=== PATIENT | male | born 1970 | race Caucasian/White ===

== ENCOUNTER 2020-01-23 12:49 | Emergency (ER) | payer MEDICARE, OTHER ==
[2020-01-23] MEDS ORDERED: SODIUM CHLORIDE 1,000 ML IV STA (12:57)
--- NOTE | 2020-01-23 12:57 | PDOC ---
Rapid Medical Evaluation Time Seen by Provider: 01/23/20 12:52 Medical Evaluation: Allergies Allergy/AdvReac Type Severity Reaction Status Date / Time iodine Allergy Verified 12/30/13 06:42 No Known Drug Allergies Allergy Verified 02/02/14 08:54 seafood Allergy Uncoded 12/30/13 06:42 01/23/20 12:52 I performed a brief in-person evaluation of this patient. Pt is a 49 y/o male who presents to the ED with complaint of right sided back pain that radiates down his legs for the last 4 days. He walks with a cane at baseline. He denies any dysuria or hematuria. He was seen by his primary doctor and had an MRI done. He denies fevers or chills. He took an oxycodone this morning (on for prior chronic pain). Pertinent physical exam findings: Right flank tenderness to palpation, walking with a cane (baseline), speaking in full sentences. I have ordered the following: labs, UA, urine culture, will defer imaging orders to treating provider Patient to proceed to ED for further evaluation. Discharge Disposition - Diagnosis Right flank pain - Referrals - Patient Instructions - Post Discharge Activity
[2020-01-23 13:05] VITALS: TEMP 98.6; BMI 33.2
[2020-01-23] MEDS ORDERED: morphine CARPU-JECT 4 MG/1 ML DISP.SYRIN IVPUSH ONE ×2 (13:43→16:07)
[2020-01-23 13:49] LABS: BASO % 0.6 % (0-2.0); EOS % 2.8 % (0-4.5); HEMATOCRIT 44.1 % (35.4-49); HEMOGLOBIN 14.8 GM/dL (11.7-16.9); MCH 30.5 pg (25.7-33.7); MCHC 33.5 g/dl (32.0-35.9); MEAN PLT VOLUME 10.2 fl (7.5-11.1); MONO % 7.2 % (3.8-10.2); NEUT % 65.4 % (42.8-82.8); PLATELET COUNT 157 K/MM3 (134-434); RBC 4.85 M/mm3 (4.00-5.60); RDW 13.2 % (11.9-15.9); WHITE BLOOD COUNT 6.8 K/mm3 (4.0-10.0)
--- NOTE | 2020-01-23 13:51 | PDOC ---
History of Present Illness - General Chief Complaint: Back Pain Stated Complaint: BACK PAIN Time Seen by Provider: 01/23/20 12:52 History Source: Patient Exam Limitations: No Limitations - History of Present Illness Initial Comments: 01/23/20 13:46 49-year-old male history of hypertension, asthma, anxiety, obstructive sleep apnea, renal stones requiring surgical intervention complaining of 2 weeks of low back pain and right-sided lateral chest wall pain worsening over the past week with intermittent nausea. low back pain radiates to left lower extremity. Patient had an MRI of cervical, thoracic and lumbar spine 3 days ago as per physician he has bulging disks and arthritis throughout his entire spine. Plans to follow-up with pain management, has an appointment scheduled with Dr. Jose J Franco on February 11, 2020. Denies cough, shortness of breath, fever, chills, w eakness, trauma, urinary complaints, urine or bowel incontinence, sick contacts or recent travel. Patient took Percocet 10/325 1 tablet at 7 AM today without relief. Patient ambulates with cane given he has had bilateral total knee replacements. ROS: as above PE: GENERAL: Appears uncomfortable HEAD: NCAT EYES: Pupils equal, round and reactive to light, sclera anicteric, conjunctiva clear ENT: pharynx: no erythema, no exudate, uvula midline NECK: supple CHEST: nontender RESP: clear, no w/r/r, no crepitus CARDIO: rrr, no m/g/r ABD: +BS, soft, nontender, non distended BACK: Bilateral CVA tenderness EXTREMITIES: Normal range of motion, no edema NEUROLOGICAL: Normal speech, walking slowly due to low back pain SKIN: Warm, Dry Past History - Medical History Allergies/Adverse Reactions: Allergies Allergy/AdvReac Type Severity Reaction Status Date / Time No Known Drug Allergies Allergy Verified 02/02/14 08:54 seafood Allergy Uncoded 12/30/13 06:42 Home Medications: Ambulatory Orders Citalopram Hydrobromide [Celexa -] 10 mg PO DAILY 12/01/12 Lisinopril [Prinivil] 10 mg PO DAILY 12/01/12 Hydrocodone Bit/Acetaminophen [Vicodin Es 7.5-750] 1 - 2 tab PO PRN PRN #0 tablet 12/02/12 Amlodipine Besylate [Norvasc -] 5 mg PO DAILY 12/29/13 Docusate Sodium [Colace -] 100 mg PO TID PRN 12/29/13 Finasteride [Proscar] 5 mg PO DAILY 12/29/13 Omeprazole [Prilosec] 40 mg PO DAILY 12/29/13 Oxycodone HCl/Acetaminophen [Percocet 5-325 mg Tablet -] 1 tab PO Q4H PRN #20 tablet 12/30/13 Celecoxib [Celebrex -] 200 mg PO BID 01/23/20 Duloxetine HCl [Cymbalta -] mg PO DAILY 01/23/20 COPD: No Diabetes: Yes Dialysis: Yes GI Disorders: Yes (acid reflux) Disorders: Yes HTN: Yes Hypercholesterolemia: Yes Kidney Stones: Yes Other medical history: arthritis - Surgical History Cholecystectomy: Yes Orthopedic Surgery: Yes (LEFT FOOT) - Immunization History Immunization Up to Date: Yes - Psycho-Social/Smoking History Smoking Status: No Smoking History: Never smoked Have you smoked in the past 12 months: No Number of Cigarettes Smoked Daily: 0 - Substance Abuse Hx (Audit-C & DAST Scrn) How often the patient has a drink containing alcohol: Never Score: In Men: 4 or > Positive; In Women: 3 or > Positive: 0 Screen Result (Pos requires Nsg. Audit-10AR): Negative *Physical Exam - Vital Signs Last Vital Signs Temp Pulse Resp BP Pulse Ox 98.6 F 65 20 166/101 H 99 01/23/20 12:57 01/23/20 12:57 01/23/20 12:57 01/23/20 12:57 01/23/20 12:57 ED Treatment Course - LABORATORY CBC & Chemistry Diagram: 01/23/20 12:00 01/23/20 12:00 - RADIOLOGY Radiology Studies Ordered: Category Date Time Status ABDOMEN & PELVIS CT W/O CONTR [CT] Stat CT Scan 01/23/20 13:44 Ordered Medical Decision Making - Medical Decision Making 01/23/20 13:51 49-year-old male history of hypertension, asthma, anxiety, obstructive sleep apnea, renal stones requiring surgical intervention complaining of 2 weeks of low back pain and right-sided lateral chest wall pain worsening over the past week with intermittent nausea. low back pain radiates to left lower extremity. Patient had an MRI of cervical, thoracic and lumbar spine 3 days ago as per physician he has bulging disks and arthritis throughout his entire spine. Plans to follow-up with pain management, has an appointment scheduled with Dr. Jose J Franco on February 11, 2020. Denies cough, shortness of breath, fever, chills, weakness, trauma, urinary complaints, urine or bowel incontinence, sick contacts or recent travel. Patient took Percocet 10/325 1 tablet at 7 AM today without relief. Patient ambulates with cane given he has had bilateral total knee replacements. Labs, UA Chest x-ray CTAP w/o con IV fluids Analgesia Reassess 01/23/20 17:[address] results with patient Copies provided Patient feels some improvement after analgesia Patient is ambulatory Advised patient to follow-up with PMD, keep the pain management appointment scheduled for February 10 Return to ED if fever, chills, worsening back pain, weakness urinary or bowel incontinence Discharge - Discharge Information Problems reviewed: Yes Clinical Impression/Diagnosis: Right flank pain Condition: Stable Disposition: HOME - Admission No - Follow up/Referral Referrals: Aries Mclaughlin MD [Primary Care Provider] - - Patient Discharge Instructions Additional Instructions: Follow-up with pain management February 11, 2020 Return to ED if worsening pain, fever, chills, urinary or bowel incontinence or any concerning symptoms - Post Discharge Activity
[2020-01-23] MEDS ORDERED: morphine SULFATE 4 MG/ML VIAL ONE ×2 (13:52→16:49)
[2020-01-23 14:10] LABS: BILIRUBIN,TOTAL 0.7 mg/dL (0.2-1); BLOOD UREA NITROGEN 14.7 mg/dL (7-18); TOT PROT 7.4 g/dl (6.4-8.2)
[2020-01-23 14:53] LABS: PH,URINE 6.5 (5.0-8.0); URINE APPEARANCE CLEAR; URINE BILIRUBIN NEGATIVE (NEGATIVE); URINE COLOR YELLOW; URINE GLUCOSE (UA) NEGATIVE (NEGATIVE); URINE KETONE TRACE (NEGATIVE); URINE LEUK ESTERASE NEGATIVE (NEGATIVE); URINE NITRITE NEGATIVE (NEGATIVE); URINE PROTEIN NEGATIVE (NEGATIVE)
[2020-01-23] MEDS ORDERED: KETOROLAC TROMETHAMINE 30 MG/1 ML VIAL IVPUSH ONE (15:32)
[2020-01-23] MEDS ORDERED: KETOROLAC TROMETHAMINE 30 MG/1 ML VIAL ONE (15:48)
[2020-01-23 17:09] VITALS: BP 147/92; PULSE 83
== END 2020-01-23 17:39 | disposition home or self-care (01) ==
LOC: JER 12:49
PROC: 3E033NZ Introduction of Analgesics, Hypnotics, Sedatives into Peripheral Vein, Percutaneous Approach (ICD-10-PCS; principal; 2020-01-23)
PROC: 3E033GC Introduction of Other Therapeutic Substance into Peripheral Vein, Percutaneous Approach (ICD-10-PCS; 2020-01-23)
PROC: 3E0337Z Introduction of Electrolytic and Water Balance Substance into Peripheral Vein, Percutaneous Approach (ICD-10-PCS; 2020-01-23)
DX: R10.9 Unspecified abdominal pain (principal)
CPT/HCPCS: 36415; 71046-TC-FY; 74176-TC; 80053; 81003; 85025; 87086; 99285-25

== ENCOUNTER 2020-01-25 10:06 | Emergency (ER) | payer MEDICARE, OTHER ==
[2020-01-25 10:15] VITALS: BMI 34.2
--- NOTE | 2020-01-25 10:15 | PDOC ---
Rapid Medical Evaluation Chief Complaint: Pain Time Seen by Provider: 01/25/20 10:11 Medical Evaluation: Allergies Allergy/AdvReac Type Severity Reaction Status Date / Time No Known Drug Allergies Allergy Verified 02/02/14 08:54 seafood Allergy Uncoded 12/30/13 06:42 01/25/20 10:12 Pt presents for evaluation of rectal bleeding this morning. States that it was dark red with clots filling the toilet. States that he had hard bowel movement this morning Exam: TTP of the lower abdomen, rectal exam deferred Orders: labs, IV Pt to proceed to the ER for further evaluation Discharge Disposition - Diagnosis Rectal bleeding - Referrals - Patient Instructions - Post Discharge Activity
--- NOTE | 2020-01-25 10:29 | PDOC ---
History of Present Illness - General Chief Complaint: Pain Stated Complaint: ABD PAIN Time Seen by Provider: 01/25/20 10:11 - History of Present Illness Initial Comments: 49 yo male with PMH of arthritis taking celecoxib and percocet presents with 2 week hx of abdominal pain. Pt decided to come in today after 2 days of bloody diarrhea. The blood started out bright then turned dark during the latest few bowel movements. His abdominal pain is sharp, diffuse and does not radiate. He denies fevers, chills, cp, sob, dysuria. Pt has not had a colonoscopy and does not follow up with GI. 01/25/20 11:22 Past History - Medical History Allergies/Adverse Reactions: Allergies Allergy/AdvReac Type Severity Reaction Status Date / Time No Known Drug Allergies Allergy Verified 02/02/14 08:54 seafood Allergy Uncoded 12/30/13 06:42 Home Medications: Ambulatory Orders Citalopram Hydrobromide [Celexa -] 10 mg PO DAILY 12/01/12 Lisinopril [Prinivil] 10 mg PO DAILY 12/01/12 Hydrocodone Bit/Acetaminophen [Vicodin Es 7.5-750] 1 - 2 tab PO PRN PRN #0 tablet 12/02/12 Amlodipine Besylate [Norvasc -] 5 mg PO DAILY 12/29/13 Docusate Sodium [Colace -] 100 mg PO TID PRN 12/29/13 Finasteride [Proscar] 5 mg PO DAILY 12/29/13 Omeprazole [Prilosec] 40 mg PO DAILY 12/29/13 Oxycodone HCl/Acetaminophen [Percocet 5-325 mg Tablet -] 1 tab PO Q4H PRN #20 tablet 12/30/13 Celecoxib [Celebrex -] 200 mg PO BID 01/23/20 Duloxetine HCl [Cymbalta -] 30 mg PO DAILY 01/23/20 Polyethylene Glycol 3350 [Miralax (For Daily Use) -] 17 gm PO BID #1 bottle 01/25/20 COPD: No Diabetes: Yes Dialysis: Yes GI Disorders: Yes (acid reflux) Disorders: Yes HTN: Yes Hypercholesterolemia: Yes Kidney Stones: Yes - Surgical History Cholecystectomy: Yes Orthopedic Surgery: Yes (LEFT FOOT) - Immunization History Immunization Up to Date: Yes - Psycho-Social/Smoking History Smoking Status: No Smoking History: Never smoked Have you smoked in the past 12 months: No Number of Cigarettes Smoked Daily: 0 Information on smoking cessation initiated: No - Substance Abuse Hx (Audit-C & DAST Scrn) In the last yr the pt used illegal drug/Rx for NonMed reason: No Score: Yes response is considered Positive: 0 Screen Result (Positive result requires Nsg. DAST-10): Negative Review of Systems - Review of Systems Constitutional: No: Chills, Diaphoresis, Fever HEENTM: No: Recent change in vision, Double Vision Respiratory: No: Cough, Shortness of Breath Cardiac (ROS): No: Chest Pain, Edema, Palpitations ABD/GI: Yes: Diarrhea, Nausea, Rectal Bleeding. No: Vomiting, Abdominal cramping : No: Burning, Dysuria, Discharge Musculoskeletal: No: Joint Pain, Muscle Weakness Integumentary: No: Bruising, Erythema, Lesions Neurological: No: Headache, Seizure, Dizziness Psychiatric: No: Anxiety, Depression, Mood Swings Endocrine: No: Intolerance to Cold, Intolerance to Heat, Increased Urine *Physical Exam - Vital Signs Last Vital Signs Temp Pulse Resp BP Pulse Ox 98.5 F 72 16 114/75 99 01/25/20 10:11 01/25/20 10:11 01/25/20 10:11 01/25/20 10:11 01/25/20 10:11 - Physical Exam General Appearance: Yes: Appropriately Dressed. No: Apparent Distress HEENT: positive: EOMI, Normal Voice Neck: negative: Trachea midline, Rigid Respiratory/Chest: positive: Lungs Clear, Normal Breath Sounds. negative: Respiratory Distress Cardiovascular: positive: Regular Rhythm, Regular Rate, S1, S2 Gastrointestinal/Abdominal: positive: Tender (diffusely ), Flat, Soft Rectal Exam: positive: normal exam, normal rectal tone. negative: hemorrhoids Musculoskeletal: positive: Normal Inspection, CVA Tenderness Extremity: positive: Normal Capillary Refill, Normal Inspection, Normal Range of Motion Integumentary: positive: Normal Color, Dry, Warm Neurologic: positive: Fully Oriented, Alert, Normal Mood/Affect ED Treatment Course - LABORATORY CBC & Chemistry Diagram: 01/25/20 15:30 01/25/20 10:21 Medical Decision Making - Medical Decision Making 49 yo male with a PMH of gastric sleeve surgery on celecoxib and percocet presents with 2 week hx of abdominal pain and bloody stool. Pt CBC and CMP were benign with normal hemoglobin. CT with PO and IV contrast was negative. Repeat CBC was normal. Heme occult blood test was positive for gi bleeding. Pt is being discharged in stable condition. He is given referral for GI (Dr. Christine). He is given miralax to combat his constipation. 01/25/20 15:46 01/25/20 15:57 Discharge - Discharge Information Problems reviewed: Yes Clinical Impression/Diagnosis: Rectal bleeding Condition: Stable Disposition: HOME - Admission No - Additional Discharge Information Prescriptions: Polyethylene Glycol 3350 [Miralax (For Daily Use) -] 17 gm PO BID #1 bottle - Follow up/Referral Referrals: Aries Mclaughlin MD [Primary Care Provider] - Philipp Christine MD [Staff Physician] - Cristo Eng DO [Staff Physician] - - Patient Discharge Instructions Additional Instructions: Follow up with your Primary care and for the referred GI physician to continue your workup for gastrointestinal bleeding. Return to the ED if your symptoms worsen and/or you experience light headedness, fatigue, nausea, vomiting, worsening GI bleeding, CP, SOB. Use miralax to help loosen your bowel movements and decrease GI irritation. - Post Discharge Activity
[2020-01-25 11:12] LABS: BASO % 0.7 % (0-2.0); HEMATOCRIT 44.5 % (35.4-49); HEMOGLOBIN 14.8 GM/dL (11.7-16.9); LYMPH % 20.1 % (8-40); MCH 30.4 pg (25.7-33.7); MCHC 33.2 g/dl (32.0-35.9); MEAN CELL VOLUME 91.6 fl (80-96); MEAN PLT VOLUME 10.6 fl (7.5-11.1); MONO % 8.1 % (3.8-10.2); NEUT % 68.1 % (42.8-82.8); PLATELET COUNT 152 K/MM3 (134-434); RBC 4.86 M/mm3 (4.00-5.60); RDW 13.4 % (11.9-15.9); WHITE BLOOD COUNT 5.7 K/mm3 (4.0-10.0)
[2020-01-25 11:20] LABS: INR 1.03 (0.83-1.09); PROTHROMBIN TIME (PATIENT) 12.2 SEC (9.7-13.0)
[2020-01-25 11:22] LABS: ACTIVATED PTT 31.3 SECONDS (25.2-36.5)
[2020-01-25] MEDS ORDERED: ACETAMINOPHEN 1000 MG/100 ML VIAL (NON FORMULARY) IVPB ONE (11:27)
[2020-01-25] MEDS ORDERED: ACETAMINOPHEN INJECTION 100 ML IVPB ONE (11:29)
[2020-01-25 11:37] LABS: BILIRUBIN,TOTAL 1.1 mg/dL (0.2-1); BLOOD UREA NITROGEN 13.6 mg/dL (7-18); CALCIUM 9.1 mg/dL (8.5-10.1); CREATININE 0.9 mg/dL (0.55-1.3); TOT PROT 7.6 g/dl (6.4-8.2)
[2020-01-25 12:02] LABS: PH,URINE 5.5 (5.0-8.0); URINE APPEARANCE CLEAR; URINE BILIRUBIN NEGATIVE (NEGATIVE); URINE COLOR YELLOW; URINE GLUCOSE (UA) NEGATIVE (NEGATIVE); URINE KETONE NEGATIVE (NEGATIVE); URINE LEUK ESTERASE NEGATIVE (NEGATIVE); URINE NITRITE NEGATIVE (NEGATIVE); URINE PROTEIN NEGATIVE (NEGATIVE); URINE UROBILINOGEN 0.2 mg/dL (0.2-1.0)
--- NOTE | 2020-01-25 13:43 | PDOC ---
Documentation entered by Lubna Murguia SCRIBE, acting as scribe for Efrain Metz MD. Efrain Metz MD: This documentation has been prepared by the Shantal ng Brenda, SCRIBE, under my direction and personally reviewed by me in its entirety. I confirm that the documentation accurately reflects all work, treatment, procedures, and medical decision making performed by me. Attending Attestation - Resident Resident Name: MikeGalen - ED Attending Attestation I have performed the following: I have examined & evaluated the patient, The case was reviewed & discussed with the resident, I agree w/resident's findings & plan, Exceptions are as noted - HPI HPI: 01/25/20 11:30 The patient is a 49 year old male with a significant PMH of arthritis who presents to the ED for evaluation of 2 days of bloody diarrhea. Patient notes that the blood in his diarrhea started out as brught red and us now dark colored, per his last few bowel movements. He is also endorsing sharp/diffuse abdminal pain for the past 2 weeks. He notes that the pain does not radiate and he has not had a colonoscopy nor GI follow-up. The patient denies chest pain, shortness of breath, headache and dizziness. Denies fever, chills, nausea, vomiting and constipation. Denies dysuria, frequency, urgency and hematuria. Allergies: NKA - Physicial Exam PE: 01/25/20 12:01 Vitals: Triage vital signs reviewed General Appearance: No acute distress, well nourished, well developed Neck: Supple; No nuchal rigidity Chest Wall: Nontender Cardiac: Regular rate and rhythm, no murmurs, no rubs, no gallops Lungs: Clear to auscultation bilateral, good air movement bilaterally Abdomen: (+) Diffuse tenderness to palpation. Soft, nondistended, normal bowel sounds. Extremities: Full range of motion to all extremities, no cyanosis, clubbing, or edema Skin: Warm and dry, no rashes or lesions, no rash, no petechiae Neuro: AOX3; Cranial Nerves 2-12 grossly intact, Strength intact to all extremities, Sensation intact to all extremities, gait normal Psych: Normal mood, normal affect - Medical Decision Making 01/25/20 16:20 3 episodes of blood in toilet no blood on rectal exam hemoglobin hematocrit stable x2 CBCs CAT scan with no evidence of pathology patient still with chronic diffuse mild abdominal discomfort most likely related to his gastric sleeve but no issues not ed on CAT scan Normal bowel movements no distention no free air no acute surgical pathology noted Patient recommended to follow-up with his surgeon as well as with gastroenterology this week Findings, need for follow-up and strict return instructions cussed with patient. Discharge - Discharge Information Problems reviewed: Yes Clinical Impression/Diagnosis: Rectal bleeding Condition: Stable Disposition: HOME - Admission No - Additional Discharge Information Prescriptions: Polyethylene Glycol 3350 [Miralax (For Daily Use) -] 17 gm PO BID #1 bottle - Follow up/Referral Referrals: Cristo Eng DO [Staff Physician] - Aries Mclaughlin MD [Primary Care Provider] - Philipp Christine MD [Staff Physician] - - Patient Discharge Instructions Additional Instructions: Follow up with your Primary care and for the referred GI physician to continue your workup for gastrointestinal bleeding. Return to the ED if your symptoms worsen and/or you experience light headedness, fatigue, nausea, vomiting, worsening GI bleeding, CP, SOB. Use miralax to help loosen your bowel movements and decrease GI irritation. - Post Discharge Activity
[2020-01-25 15:52] LABS: HEMATOCRIT 41.8 % (35.4-49); HEMOGLOBIN 13.9 GM/dL (11.7-16.9); MCH 30.4 pg (25.7-33.7); MCHC 33.2 g/dl (32.0-35.9); MEAN CELL VOLUME 91.6 fl (80-96); MEAN PLT VOLUME 10.2 fl (7.5-11.1); PLATELET COUNT 140 K/MM3 (134-434); RBC 4.57 M/mm3 (4.00-5.60); RDW 13.3 % (11.9-15.9); WHITE BLOOD COUNT 5.9 K/mm3 (4.0-10.0)
[2020-01-25 16:02] VITALS: BP 115/67; PULSE 78; TEMP 98
== END 2020-01-25 16:09 | disposition home or self-care (01) ==
LOC: JER 10:06
PROC: 3E033NZ Introduction of Analgesics, Hypnotics, Sedatives into Peripheral Vein, Percutaneous Approach (ICD-10-PCS; principal; 2020-01-25)
DX: K62.5 Hemorrhage of anus and rectum (principal)
CPT/HCPCS: 36415; 74177-TC; 80053; 81003; 82272; 83690; 85025; 85027; 85610; 85730; 86850; 86900; 86901; 87086; 99285-25; J0131; Q9967

== ENCOUNTER 2020-03-16 04:25 | Emergency (ER) | payer MEDICARE, OTHER ==
--- OUTSIDE RECORDS SUMMARY | 2020-03-16 04:38 | XMS ---
:1970 Author Organization [facility] Support Name Relationship Address Phone UE, UNEMPLOYED Unavailable Unavailable Unavailable UE Unavailable Unavailable Unavailable FERNANDO MCMILLAN [address] [phone] [place] [address] FERNANDO MCMILLAN [address] [place] [address] Re-disclosure Warning The records that you are about to access may contain information from federally- assisted alcohol or drug abuse programs. If such information is present, then the following federally mandated warning applies: This information has been disclosed to you from records protected by federal confidentiality rules (42 CFR part 2). The federal rules prohibit you from making any further disclosure of this information unless further disclosure is expressly permitted by the written consent of the person to whom it pertains or as otherwise permitted by 42 CFR part 2. A general authorization for the release of medical or other information is NOT sufficient for this purpose. The Federal rules restrict any use of the information to criminally investigate or prosecute any alcohol or drug abuse patient.The records that you are about to access may contain highly sensitive health information, the redisclosure of which is protected by Article 27-F of the [facility] Public Health law. If you continue you may haveaccess to information: Regarding HIV / AIDS; Provided by facilities licensed or operated by the [facility] Office of Mental Health; or Provided by the [facility] Office for People With Developmental Disabilities. If such information is present, then the following [facility] mandated warning applies: This information has been disclosed to you from confidential records which are protected by state law. State law prohibits you from making any further disclosure of this information without the specific written consent of the person to whom it pertains, or as otherwise permitted by law. Any unauthorized further disclosure in violation of state law may result in a fine or [place] [facility] sentence or both. A general authorization for the release of medical or other information is NOT sufficient authorization for further disclosure. Insurance Providers Payer name Policy type Policy ID Covered Covered libertarian's Policy P gunjan / Coverage libertarian ID relationship to Estr[employer] Inf ormation type estrada REBECCA [id number] SP [id number] MEDICARE ADV PLAN MEDICAID [id number] SP [id number] REBECCA [id number] SP [id number] MEDICARE ADV PLAN MEDICARE [id number] SP [id number]
[2020-03-16 04:41] VITALS: TEMP 98.6; BMI 27.8
--- NOTE | 2020-03-16 04:44 | PDOC ---
Attending Attestation - Resident Resident Name: Vito Duncan - ED Attending Attestation I have performed the following: I have examined & evaluated the patient, The case was reviewed & discussed with the resident, I agree w/resident's findings & plan - HPI HPI: 03/16/20 06:37 see resident hpi - Physicial Exam PE: 03/16/20 06:37 see resident exam - Medical Decision Making 03/16/20 06:51 49-year-old male with right flank pain Labs and CT scan of the abdomen and pelvis showed no significant acute abnormality Exam is most consistent with musculoskeletal pain mildly improved after morphine We will DC with a Medrol Dosepak and high-dose sed To all and Solu-Medrol given in the emergency department prior to discharge Discharge - Discharge Information Problems reviewed: Yes Clinical Impression/Diagnosis: Flank pain - Follow up/Referral Referrals: Aries Mclaughlin MD [Primary Care Provider] - - Patient Discharge Instructions - Post Discharge Activity
--- NOTE | 2020-03-16 04:50 | PDOC ---
History of Present Illness - General Chief Complaint: Pain, Acute Stated Complaint: CHEST TIGHTNESS Time Seen by Provider: 03/16/20 04:43 - History of Present Illness Initial Comments: Jan Lazcano is a 49 y/o male with PMH significant for arthritis (on celecoxib and percocet) s/p gastric bypass presenting today with right sided flank pain. Reports that the pain started around midnight when he was resting on his couch. Reports that the pain is stabbing and constant. Pain is radiating towards his groin. Reports that the right flank pain is worse with movement and palpation. No chest pain/shortness of breath. No abdominal pain. No leg swelling. No fever/chills. No dysuria/diarrhea/hematuria. No nausea/vomiting. SocHx: never smoker Past History - Medical History Allergies/Adverse Reactions: Allergies Allergy/AdvReac Type Severity Reaction Status Date / Time No Known Drug Allergies Allergy Verified 03/16/20 04:41 seafood Allergy Uncoded 03/16/20 04:41 Home Medications: Ambulatory Orders Citalopram Hydrobromide [Celexa -] 10 mg PO DAILY 12/01/12 Lisinopril [Prinivil] 10 mg PO DAILY 12/01/12 Hydrocodone Bit/Acetaminophen [Vicodin Es 7.5-750] 1 - 2 tab PO PRN PRN #0 tablet 12/02/12 Amlodipine Besylate [Norvasc -] 5 mg PO DAILY 12/29/13 Docusate Sodium [Colace -] 100 mg PO TID PRN 12/29/13 Finasteride [Proscar] 5 mg PO DAILY 12/29/13 Omeprazole [Prilosec] 40 mg PO DAILY 12/29/13 Oxycodone HCl/Acetaminophen [Percocet 5-325 mg Tablet -] 1 tab PO Q4H PRN #20 tablet 12/30/13 Celecoxib [Celebrex -] 200 mg PO BID 01/23/20 Duloxetine HCl [Cymbalta -] 30 mg PO DAILY 01/23/20 Polyethylene Glycol 3350 [Miralax (For Daily Use) -] 17 gm PO BID #1 bottle 01/25/20 Methylprednisolone [Medrol Dose Martin] 4 mg PO ASDIR #21 tablet 03/16/20 COPD: No Diabetes: Yes Dialysis: Yes GI Disorders: Yes (acid reflux) Disorders: Yes HTN: Yes Hypercholesterolemia: Yes Kidney Stones: Yes - Surgical History Cholecystectomy: Yes Orthopedic Surgery: Yes (LEFT FOOT) - Immunization History Immunization Up to Date: Yes - Psycho-Social/Smoking History Smoking Status: No Smoking History: Never smoked Have you smoked in the past 12 months: No Number of Cigarettes Smoked Daily: 0 Information on smoking cessation initiated: No - Substance Abuse Hx (Audit-C & DAST Scrn) How often the patient has a drink containing alcohol: Never Score: In Men: 4 or > Positive; In Women: 3 or > Positive: 0 Screen Result (Pos requires Nsg. Audit-10AR): Negative In the last yr the pt used illegal drug/Rx for NonMed reason: No Score: Yes response is considered Positive: 0 Screen Result (Positive result requires Nsg. DAST-10): Negative Review of Systems - Review of Systems Comments:: GENERAL/CONSTITUTIONAL: No fever or chills. No weakness._ HEAD, EYES, EARS, NOSE AND THROAT: No change in vision. No change in hearing. No sore throat._ CARDIOVASCULAR: Reports chest tightness and pressure. RESPIRATORY: Denies cough, hemoptysis_ GASTROINTESTINAL: No nausea, vomiting, diarrhea or constipation._ GENITOURINARY: No dysuria, frequency, or change in urination._ MUSCULOSKELETAL: No joint or muscle swelling or pain. No neck or back pain. Reports right flank pain. SKIN: No rash_ NEUROLOGIC: No headache, vertigo, loss of consciousness, or change in strength/sensation._ ENDOCRINE: No increased thirst. No abnormal weight change_ HEMATOLOGIC/LYMPHATIC: No anemia, easy bleeding, or history of blood clots._ ALLERGIC/IMMUNOLOGIC: No hives or skin allergy._ *Physical Exam - Vital Signs Last Vital Signs Temp Pulse Resp BP Pulse Ox 98.6 F 76 20 157/93 100 03/16/20 04:39 03/16/20 04:39 03/16/20 04:39 03/16/20 04:39 03/16/20 04:39 - Physical Exam GENERAL: Awake, alert, and oriented to person/place/time, in no acute distress_ HEAD: No signs of trauma, normocephalic, atraumatic _ EYES: PERRLA, EOMI, sclera anicteric, conjunctiva clear_ ENT: Hearing grossly normal, nares patent, oropharynx clear without exudates. No uvular deviation. Moist mucosa_ NECK: Normal ROM, supple, no lymphadenopathy, JVD, or masses_ LUNGS: No distress, speaks in full sentences, clear to auscultation bilaterally _ HEART: Regular rate and rhythm, normal S1 and S2, no murmurs appreciated, peripheral pulses normal and equal bilaterally._ ABDOMEN: Soft, nontender, normoactive bowel sounds. No guarding, no rebound. No masses_ BACK: Mild TTP right flank. No obvious ecchymosis or rash over the affected area. EXTREMITIES: Normal inspection, Normal range of motion, no edema. No clubbing or cyanosis_ NEUROLOGICAL: Cranial nerves II through XII grossly intact. Normal speech, normal gait, no focal sensorimotor deficits _ SKIN: Warm, Dry, normal turgor, no rashes or lesions noted_ ED Treatment Course - LABORATORY CBC & Chemistry Diagram: 03/16/20 05:00 03/16/20 05:00 Medical Decision Making - Medical Decision Making 03/16/20 04:49 49M hx of arthritis and s/p gastric bypass presenting today with right flank pain that started four hours ago. No fever/chills/systemic infectious symptoms. No d ysuria/hematuria. -cbc, cmp -ekg, trop, cxr -CT abd pelv w/o -ua, ucx -morphine 03/16/20 05:21 EKG shows 57 bpm, sinus bradycardia, no axis deviation, UT 150, QTc 422, no ST elevation/depression. 03/16/20 06:40 Labs reviewed. Laboratory Last Values WBC 6.0 K/mm3 (4.0-10.0) 03/16/20 05:00 RBC 4.79 M/mm3 (4.00-5.60) 03/16/20 05:00 Hgb 14.5 GM/dL (11.7-16.9) 03/16/20 05:00 Hct 43.2 % (35.4-49) 03/16/20 05:00 MCV 90.2 fl (80-96) 03/16/20 05:00 MCH 30.3 pg (25.7-33.7) 03/16/20 05:00 MCHC 33.5 g/dl (32.0-35.9) 03/16/20 05:00 RDW 13.3 % (11.9-15.9) 03/16/20 05:00 Plt Count 165 K/MM3 (134-434) 03/16/20 05:00 MPV 10.3 fl (7.5-11.1) 03/16/20 05:00 Absolute Neuts (auto) 3.4 K/mm3 (1.5-8.0) 03/16/20 05:00 Neutrophils % 57.2 % (42.8-82.8) 03/16/20 05:00 Lymphocytes % 30.1 % (8-40) D 03/16/20 05:00 Monocytes % 8.5 % (3.8-10.2) 03/16/20 05:00 Eosinophils % 3.6 % (0-4.5) 03/16/20 05:00 Basophils % 0.6 % (0-2.0) 03/16/20 05:00 Nucleated RBC % 0 % (0-0) 03/16/20 05:00 Sodium 140 mmol/L (136-145) 03/16/20 05:00 Potassium 4.0 mmol/L (3.5-5.1) 03/16/20 05:00 Chloride 106 mmol/L (98-107) 03/16/20 05:00 Carbon Dioxide 29 mmol/L (21-32) 03/16/20 05:00 Anion Gap 4 MMOL/L (8-16) L 03/16/20 05:00 BUN 12.2 mg/dL (7-18) 03/16/20 05:00 Creatinine 1.0 mg/dL (0.55-1.3) 03/16/20 05:00 Est GFR (CKD-EPI)AfAm 103.42 03/16/20 05:00 Est GFR (CKD-EPI)NonAf 89.23 03/16/20 05:00 Random Glucose 94 mg/dL (74-106) 03/16/20 05:00 Calcium 9.0 mg/dL (8.5-10.1) 03/16/20 05:00 Total Bilirubin 0.6 mg/dL (0.2-1) 03/16/20 05:00 AST 16 U/L (15-37) 03/16/20 05:00 ALT 20 U/L (13-61) 03/16/20 05:00 Alkaline Phosphatase 88 U/L (45-117) 03/16/20 05:00 Creatine Kinase 151 U/L (26-308) 03/16/20 05:00 Creatine Kinase Index No Result Required. 03/16/20 05:00 CK-MB (CK-2) < 1.0 ng/mL (0.5-3.6) 03/16/20 05:00 Troponin I < 0.02 ng/ml (0.00-0.05) 03/16/20 05:00 Total Protein 7.6 g/dl (6.4-8.2) 03/16/20 05:00 Albumin 4.0 g/dl (3.4-5.0) 03/16/20 05:00 Urine Color Yellow 03/16/20 05:00 Urine Appearance Clear 03/16/20 05:00 Urine pH 6.5 (5.0-8.0) 03/16/20 05:00 Ur Specific [place] 1.022 (1.010-1.035) 03/16/20 05:00 Urine Protein Negative (NEGATIVE) 03/16/20 05:00 Urine Glucose (UA) Negative (NEGATIVE) 03/16/20 05:00 Urine Ketones Negative (NEGATIVE) 03/16/20 05:00 Urine Blood Negative (NEGATIVE) 03/16/20 05:00 Urine Nitrite Negative (NEGATIVE) 03/16/20 05:00 Urine Bilirubin Negative (NEGATIVE) 03/16/20 05:00 Urine Urobilinogen 1.0 mg/dL (0.2-1.0) 03/16/20 05:00 Ur Leukocyte Esterase Negative (NEGATIVE) 03/16/20 05:00 CT abdomen pelvis shows no signs of kidney stone, normal appendix, no signs of diverticulitis or colitis, no other acute intra-abdominal pathology. CXR negative for acute intrathoracic pathology. 03/16/20 06:44 Pt reassessed. Will tive toradol and solumedrol for inflammation and MSK pain. P gunjan to d/c home with medrol dose martin and Tylenol and PCP f/u. All questions answered. Return precautions given. Pt verbalized understanding and agreement with plan. Discharge - Discharge Information Problems reviewed: Yes Clinical Impression/Diagnosis: Flank pain Condition: Stable Disposition: HOME - Admission No - Additional Discharge Information Prescriptions: Methylprednisolone [Medrol Dose Martin] 4 mg PO ASDIR #21 tablet - Follow up/Referral Referrals: Aries Mclaughlin MD [Primary Care Provider] - - Patient Discharge Instructions Patient Printed Discharge Instructions: DI for Flank Pain Additional Instructions: Please make a follow up appointment with your primary care physician to follow up with your right flank pain. Please take the Medrol dose martin (steroids) - follow instructions on the package. Please take Tylenol as needed for your pain (follow instructions on the package). If you experience any new, worsening, or concerning symptoms, including worsening flank pain, fever, chills, pain on urination, or any other concerns, please return to the emergency department. - Post Discharge Activity
[2020-03-16] MEDS ORDERED: morphine CARPU-JECT 4 MG/1 ML DISP.SYRIN IVPUSH ONE (04:54)
[2020-03-16] MEDS ORDERED: morphine SULFATE 4 MG/ML VIAL ONE (05:02)
[2020-03-16 05:51] LABS: PH,URINE 6.5 (5.0-8.0); URINE APPEARANCE CLEAR; URINE BILIRUBIN NEGATIVE (NEGATIVE); URINE COLOR YELLOW; URINE GLUCOSE (UA) NEGATIVE (NEGATIVE); URINE KETONE NEGATIVE (NEGATIVE); URINE LEUK ESTERASE NEGATIVE (NEGATIVE); URINE NITRITE NEGATIVE (NEGATIVE); URINE PROTEIN NEGATIVE (NEGATIVE)
[2020-03-16 05:53] LABS: ALK PHOS 88 U/L (45-117); ANION GAP 4 MMOL/L (8-16); BILIRUBIN,TOTAL 0.6 mg/dL (0.2-1); BLOOD UREA NITROGEN 12.2 mg/dL (7-18); CHLORIDE 106 mmol/L (98-107); CO2 29 mmol/L (21-32); GLUCOSE,RANDOM 94 mg/dL (74-106); SGOT/AST 16 U/L (15-37); SGPT/ALT 20 U/L (13-61); SODIUM 140 mmol/L (136-145); TOT PROT 7.6 g/dl (6.4-8.2)
[2020-03-16 06:23] LABS: BASO % 0.6 % (0-2.0); EOS % 3.6 % (0-4.5); HEMATOCRIT 43.2 % (35.4-49); HEMOGLOBIN 14.5 GM/dL (11.7-16.9); LYMPH % 30.1 % (8-40); MCH 30.3 pg (25.7-33.7); MCHC 33.5 g/dl (32.0-35.9); MEAN CELL VOLUME 90.2 fl (80-96); MEAN PLT VOLUME 10.3 fl (7.5-11.1); MONO % 8.5 % (3.8-10.2); NEUT % 57.2 % (42.8-82.8); PLATELET COUNT 165 K/MM3 (134-434); RBC 4.79 M/mm3 (4.00-5.60); RDW 13.3 % (11.9-15.9)
[2020-03-16] MEDS ORDERED: KETOROLAC TROMETHAMINE 30 MG/1 ML VIAL IVPUSH ONE (06:43)
[2020-03-16] MEDS ORDERED: methylPREDNISolone NA SUCC 125 MG/2 ML VIAL IVPUSH ONE (06:44)
[2020-03-16] MEDS ORDERED: methylPREDNISolone NA SUCC 125 MG/2 ML VIAL ONE (06:50)
[2020-03-16] MEDS ORDERED: KETOROLAC TROMETHAMINE 30 MG/1 ML VIAL ONE (06:50)
[2020-03-16 07:59] VITALS: BP 147/94; PULSE 66
--- NOTE | 2020-03-16 09:00 | EKG ---
Test Reason : Blood Pressure : / mmHG Vent. Rate : 057 BPM Atrial Rate : 057 BPM P-R Int : 150 ms QRS Dur : 104 ms QT Int : 434 ms P-R-T Axes : 048 044 033 degrees QTc Int : 422 ms SINUS BRADYCARDIA OTHERWISE NORMAL ECG WHEN COMPARED WITH ECG OF 20-FEB-2013 12:31, NO SIGNIFICANT CHANGE WAS FOUND Confirmed by MD LUNDY PENG ([id number]) on 03/16/2020 9:00:22 AM Referred By: Confirmed By:LAURA LUNDY MD
== END 2020-03-16 08:01 | disposition home or self-care (01) ==
LOC: JER 04:25
PROC: 3E033NZ Introduction of Analgesics, Hypnotics, Sedatives into Peripheral Vein, Percutaneous Approach (ICD-10-PCS; principal; 2020-03-16)
PROC: 3E033GC Introduction of Other Therapeutic Substance into Peripheral Vein, Percutaneous Approach (ICD-10-PCS; 2020-03-16)
DX: R10.9 Unspecified abdominal pain (principal)
CPT/HCPCS: 36415; 71045-TC-FY; 74176-TC; 80053; 81003; 82550; 82553; 84484; 85025; 87086; 93005; 93010; 99285-25

== ENCOUNTER 2020-04-12 05:27 | Day surgery (SDC) | payer MEDICARE, OTHER ==
[2020-04-07 11:17] VITALS: BMI 34.0
--- OUTSIDE RECORDS SUMMARY | 2020-04-12 05:32 | XMS ---
:1970 Author Organization [facility] Support Name Relationship Address Phone UE, UNEMPLOYED Unavailable Unavailable Unavailable UE Unavailable Unavailable Unavailable FERNANDO MCMILLAN [address] [place] [address] FERNANDO MCMILLAN [address] [place] [address] Re-disclosure Warning The records that you are [...] is protected by Article 27-F of the [facility] Public Health law. If you continue you may haveaccess to information: Regarding HIV / AIDS; Provided by facilities licensed or operated by the [facility] Office of Mental Health; or Provided by the [facility] Office for People With Developmental Disabilities. If such information is present, then the following [facility] mandated warning applies: This information has been [...] law may result in a fine or residential sentence or both. A general authorization for the release of medical or other information is NOT sufficient authorization for further disclosure. Insurance Providers Payer name Policy type Policy ID Covered Covered republican's Policy P gunjan / Coverage republican ID relationship to Estrada Inf ormation type estrada REBECCA [id number] SP [id number] MEDICARE ADV PLAN MEDICAID [id number] SP [id number] REBECCA [id number] SP [id number] MEDICARE ADV PLAN MEDICARE [id number] SP [id number] Results ID Date Data Source [id number] 04/07/2020 08:12:00 AM EDT [facility] Name Value Range Interpretation Description Data Sup porting Code Source(s) Document(s ) SARS [facility] coronavirus 2 RNA This lab was ordered by [facility] and reported by [facility]. ID Date Data Source [id number] 03/11/2020 06:10:00 PM EDT [facility] Name Value Range Interpretation Code Description Data Jenny rce(s) Supporting Document(s ) SARS-COV-2 [facility] QL AMISHA+PROBE This lab was ordered by [facility] and reported by [facility]. Procedure
[2020-04-12 08:24] VITALS: TEMP 98.3
[2020-04-12 09:26] VITALS: BP 131/84; PULSE 62
--- NOTE | 2020-04-13 17:31 | PATH ---
Surgical Pathology Report Patient Name: JANEY MCMILLAN [facility]. Rec. #: [id number] /Age/Gender: 1970 (Age: 49) / M Account: [id number] Location: U-ENDOSCOPY Taken: 04/12/2020 Received: 04/12/2020 Reported: 04/13/2020 Physicians: Philipp Christine M.D. Specimen(s) Received A: DUODENUM B: GASTRIC ANTRUM C: SIGMOID COLON Clinical History Abdominal pain, diarrhea Postoperative diagnosis: Normal EGD, normal colon, hemorrhoids Final Diagnosis A. DUODENUM, BIOPSY: DUODENAL MUCOSA WITHOUT SIGNIFICANT PATHOLOGIC FINDINGS. B. GASTRIC ANTRUM, BIOPSY: GASTRIC ANTRAL MUCOSA WITH MILD CHRONIC GASTRITIS. IMMUNOHISTOCHEMICAL STAIN FOR H. PYLORI IS NEGATIVE. C. SIGMOID COLON, BIOPSY: COLONIC MUCOSA WITHOUT SIGNIFICANT PATHOLOGIC FINDINGS. Positive and negative controls (internal if applicable) show appropriate results. Electronically Signed Rosalva Le M.D. Gross Description A. Received in formalin, labeled "biopsy duodenum" are 6 jones, irregular portions of soft tissue ranging from 0.1-0.4 cm. in greatest dimension. The specimens are submitted in toto in one cassette. B. Received in formalin, labeled "biopsy gastric antrum" are 2 jones, irregular portions of soft tissue measuring 0.2 and 0.4 cm. in greatest dimension. The specimens are submitted in toto in one cassette. C. Received in formalin, labeled "biopsy sigmoid colon" are 2 jones, irregular portions of soft tissue measuring 0.2 and 0.3 cm. in greatest dimension. The specimens are submitted in toto in one cassette. 04/12/2020 saudi04/12/2020
== END 2020-04-12 09:40 | disposition home or self-care (01) ==
LOC: JASU-ENDO 05:27
PROVIDERS: ATTEND Internal Medicine Gastroenterology
PROC: 0DB68ZX Excision of Stomach, Via Natural or Artificial Opening Endoscopic, Diagnostic (ICD-10-PCS; 2020-04-12)
PROC: 0DB38ZX Excision of Lower Esophagus, Via Natural or Artificial Opening Endoscopic, Diagnostic (ICD-10-PCS; 2020-04-12)
PROC: 0DBN8ZX Excision of Sigmoid Colon, Via Natural or Artificial Opening Endoscopic, Diagnostic (ICD-10-PCS; 2020-04-12)
PROC: 0DB98ZX Excision of Duodenum, Via Natural or Artificial Opening Endoscopic, Diagnostic (ICD-10-PCS; principal; 2020-04-12 08:00)
DX: K29.50 Unspecified chronic gastritis without bleeding (principal)
CPT/HCPCS: 88305-TC; 88342-TC

== ENCOUNTER 2020-05-16 10:26 | Emergency (ER) | payer MEDICARE, OTHER ==
[2020-05-16 10:34] VITALS: BP 131/77; PULSE 73; TEMP 98.3; BMI 33.9
== END 2020-05-16 12:33 | disposition home or self-care (01) ==
LOC: JER 10:26
DX: I82.402 Acute embolism and thrombosis of unspecified deep veins of left lower extremity (principal)
CPT/HCPCS: 93971-TC; 99284-25

== ENCOUNTER 2021-02-27 04:25 | Day surgery (SDC) | payer OTHER ==
[2021-02-21 12:35] VITALS: BMI 34.3
[2021-02-27] MEDS ORDERED: BUPIVACAINE HCL/PF 0.5% (5MG/ML) 10 ML VIAL ONE (07:22)
[2021-02-27] MEDS ORDERED: LIDOCAINE HCL 1%, 10 MG/ML (20ML VIAL) ONE (07:22)
[2021-02-27] MEDS ORDERED: MIDAZOLAM HCL 2 MG/2 ML SINGLE DOSE VIAL ONE (08:01)
[2021-02-27] MEDS ORDERED: PROPOFOL 20 ML ONE ×4 (08:02)
[2021-02-27] MEDS ORDERED: LIDOCAINE HCL/PF 2% SDV 5ML VIAL ONE (08:13)
[2021-02-27] MEDS ORDERED: ceFAZolin SODIUM 1 GM VIAL IVPB ONE (08:25)
[2021-02-27] MEDS ORDERED: DEXAMETHASONE SOD PHOSPHATE 4 MG/1 ML VIAL ONE (08:26)
[2021-02-27] MEDS ORDERED: KETOROLAC TROMETHAMINE 30 MG/1 ML VIAL ONE (08:26)
[2021-02-27] MEDS ORDERED: ONDANSETRON 4 MG/2 ML VIAL ONE (08:26)
[2021-02-27] MEDS ORDERED: BUPIVACAINE HCL/PF 0.5% (5 MG/ML) 30 ML VIAL IJ ONE (08:38)
[2021-02-27] MEDS ORDERED: ceFAZolin SODIUM 1 GM VIAL ONE (08:38)
[2021-02-27] MEDS ORDERED: ACETAMINOPHEN 500 MG TABLET (FP) PO PRN (09:09)
[2021-02-27] MEDS ORDERED: ONDANSETRON 4 MG/2 ML VIAL IVPUSH PRN (09:09)
[2021-02-27] MEDS ORDERED: oxyCODONE HCL 5 MG TABLET PO PRN (09:09)
[2021-02-27] MEDS ORDERED: ACETAMINOPHEN 325 MG TABLET (FP) PO ONE (09:15)
[2021-02-27] MEDS ORDERED: LACTATED RINGERS SOLUTION 1,000 ML IV SCH (09:15)
[2021-02-27] MEDS ORDERED: oxyCODONE HCL 5 MG TABLET PO ONE (09:15)
[2021-02-27] MEDS ORDERED: ACETAMINOPHEN 325 MG TABLET (FP) ONE (09:16)
[2021-02-27 09:29] VITALS: PULSE 65
[2021-02-27 11:10] VITALS: BP 118/75; TEMP 98.5
== END 2021-02-27 10:55 | disposition home or self-care (01) ==
LOC: JASU-SURG 04:25
PROVIDERS: ATTEND Orthopaedic Surgery
PROC: 0LB50ZZ Excision of Right Lower Arm and Wrist Tendon, Open Approach (ICD-10-PCS; 2021-02-27)
PROC: 01N50ZZ Release Median Nerve, Open Approach (ICD-10-PCS; principal; 2021-02-27 08:00)
DX: G56.01 Carpal tunnel syndrome, right upper limb (principal)

== ENCOUNTER 2021-05-08 15:08 | Emergency (ER) | payer OTHER ==
[2021-05-08 15:30] VITALS: BP 129/84; PULSE 73; TEMP 98.1; BMI 33.3
[2021-05-08] MEDS ORDERED: ONDANSETRON 4 MG/2 ML VIAL IVPUSH ONE (17:06)
[2021-05-08] MEDS ORDERED: ACETAMINOPHEN 500 MG TABLET (FP) PO ONE (17:07)
[2021-05-08] MEDS ORDERED: ACETAMINOPHEN 325 MG TABLET (FP) ONE (17:20)
[2021-05-08] MEDS ORDERED: ONDANSETRON 4 MG/2 ML VIAL ONE (17:21)
[2021-05-08] MEDS ORDERED: SODIUM CHLORIDE 0.9% 500 ML INFUS.BAG IV ONE (17:40)
[2021-05-08] MEDS ORDERED: morphine SULFATE 4 MG/ML VIAL IVPUSH ONE ×2 (17:40→19:48)
[2021-05-08 18:00] LABS: BASO % 0.8 % (0-2.0); EOS % 2.3 % (0-4.5); HEMOGLOBIN 13.8 GM/dL (11.7-16.9); LYMPH % 29.5 % (8-40); MCHC 34.5 g/dl (32.0-35.9); MEAN CELL VOLUME 89.9 fl (80-96); MEAN PLT VOLUME 9.2 fl (7.5-11.1); MONO % 6.2 % (3.8-10.2); NEUT % 61.2 % (42.8-82.8); PLATELET COUNT 162 10^3/uL (134-434); RBC 4.45 M/mm3 (4.00-5.60); RDW 13.1 % (11.9-15.9); WHITE BLOOD COUNT 6.6 K/mm3 (4.0-10.0)
[2021-05-08] MEDS ORDERED: morphine SULFATE 4 MG/ML VIAL ONE ×2 (18:07→20:42)
[2021-05-08 18:11] LABS: INR 1.11 (0.83-1.09); PROTHROMBIN TIME (PATIENT) 12.4 SEC (9.7-13.0)
[2021-05-08 18:14] LABS: ACTIVATED PTT 30.5 SECONDS (25.2-36.5)
[2021-05-08 18:15] LABS: CHLORIDE 110 mmol/L (98-107); SODIUM 142 mmol/L (136-145)
[2021-05-08 18:17] LABS: CALCIUM 9.1 mg/dL (8.5-10.1)
[2021-05-08 18:18] LABS: ALBUMIN 3.9 g/dl (3.4-5.0); ANION GAP 6 MMOL/L (8-16); CO2 26 mmol/L (21-32); GLUCOSE,RANDOM 88 mg/dL (74-106); MAGNESIUM 2.6 mg/dL (1.8-2.4)
[2021-05-08 18:21] LABS: CREATININE 0.9 mg/dL (0.55-1.3); PHOSPHOROUS 3.2 mg/dL (2.5-4.9); SGOT/AST 20 U/L (15-37); SGPT/ALT 22 U/L (13-61)
[2021-05-08 18:23] LABS: BILIRUBIN,TOTAL 0.3 mg/dL (0.2-1); TOT PROT 7.3 g/dl (6.4-8.2)
[2021-05-08 18:24] LABS: ALK PHOS 76 U/L (45-117)
[2021-05-08 22:16] LABS: URINE APPEARANCE CLEAR; URINE BILIRUBIN NEGATIVE (NEGATIVE); URINE COLOR YELLOW; URINE GLUCOSE (UA) NEGATIVE (NEGATIVE); URINE KETONE NEGATIVE (NEGATIVE); URINE LEUK ESTERASE NEGATIVE (NEGATIVE); URINE NITRITE NEGATIVE (NEGATIVE); URINE PROTEIN NEGATIVE (NEGATIVE); URINE UROBILINOGEN 0.2 mg/dL (0.2-1.0)
[2021-05-08 22:23] LABS: LIPASE 82 U/L (73-393)
== END 2021-05-08 22:55 | disposition home or self-care (01) ==
LOC: JER 15:08
PROC: 3E033NZ Introduction of Analgesics, Hypnotics, Sedatives into Peripheral Vein, Percutaneous Approach (ICD-10-PCS; principal; 2021-05-08)
PROC: 3E033GC Introduction of Other Therapeutic Substance into Peripheral Vein, Percutaneous Approach (ICD-10-PCS; 2021-05-08)
PROC: 3E033GC Introduction of Other Therapeutic Substance into Peripheral Vein, Percutaneous Approach (ICD-10-PCS; 2021-05-08)
DX: K62.5 Hemorrhage of anus and rectum (principal); R10.9 Unspecified abdominal pain
CPT/HCPCS: 36415; 71045-TC-FY; 74177-TC; 80053; 81003; 82272; 82550; 82553; 83690; 83735; 84100; 84484; 85025; 85610; 85730; 86850; 86900; 86901; 87086; 93005; 93010; 96374; 96375; 96376; 99285-25; Q9967

== ENCOUNTER 2021-08-28 07:11 | Emergency (ER) | payer OTHER ==
[2021-08-28 07:32] VITALS: TEMP 98.2; BMI 33.3
[2021-08-28] MEDS ORDERED: ONDANSETRON 4 MG/2 ML VIAL IVPUSH ONE (08:23)
[2021-08-28] MEDS ORDERED: ACETAMINOPHEN 1000 MG/100 ML BAG IVPB ONE (08:23)
[2021-08-28] MEDS ORDERED: ACETAMINOPHEN INJECTION 100 ML IVPB ONE (08:26)
[2021-08-28] MEDS ORDERED: ONDANSETRON 4 MG/2 ML VIAL ONE (08:26)
[2021-08-28 09:11] LABS: BASO % 0.6 % (0-2.0); EOS % 0.9 % (0-4.5); HEMATOCRIT 43.3 % (35.4-49); HEMOGLOBIN 14.7 GM/dL (11.7-16.9); LYMPH % 17.8 % (8-40); MCH 30.4 pg (25.7-33.7); MCHC 33.9 g/dl (32.0-35.9); MEAN CELL VOLUME 89.7 fl (80-96); MONO % 6.9 % (3.8-10.2); NEUT % 73.8 % (42.8-82.8); PLATELET COUNT 170 10^3/uL (134-434); RBC 4.83 M/mm3 (4.00-5.60); RDW 13.4 % (11.9-15.9); WHITE BLOOD COUNT 5.9 K/mm3 (4.0-10.0)
[2021-08-28 09:27] LABS: ALBUMIN 4.2 g/dl (3.4-5.0); BLOOD UREA NITROGEN 14.1 mg/dL (7-18); CALCIUM 8.9 mg/dL (8.5-10.1); MAGNESIUM 2.4 mg/dL (1.8-2.4)
[2021-08-28 09:30] LABS: CREATININE 0.9 mg/dL (0.55-1.3)
[2021-08-28 09:32] LABS: TOT PROT 7.7 g/dl (6.4-8.2)
[2021-08-28] MEDS ORDERED: METOCLOPRAMIDE HCL INJECTION 10 MG/2 ML VIAL IVPUSH ONE (09:52)
[2021-08-28] MEDS ORDERED: KETOROLAC TROMETHAMINE 15 MG/ML VIAL IVPUSH ONE (09:52)
[2021-08-28] MEDS ORDERED: METOCLOPRAMIDE HCL INJECTION 10 MG/2 ML VIAL ONE (09:54)
[2021-08-28] MEDS ORDERED: KETOROLAC TROMETHAMINE 15 MG/ML VIAL ONE (09:55)
[2021-08-28 10:12] VITALS: BP 119/83; PULSE 68
[2021-08-28 10:40] LABS: EPI CELLS 3 /uL (0-25.1); HYALINE CASTS 1 /uL (0-3.1); PH,URINE 6.5 (5.0-8.0); URINE APPEARANCE CLEAR; URINE BACTERIA 1 /uL (0-1359); URINE BILIRUBIN 1+ (NEGATIVE); URINE COLOR DK YELLOW; URINE GLUCOSE (UA) NEGATIVE (NEGATIVE); URINE KETONE TRACE (NEGATIVE); URINE LEUK ESTERASE TRACE (NEGATIVE); URINE NITRITE NEGATIVE (NEGATIVE); URINE PROTEIN TRACE (NEGATIVE); URINE RBC 9 /uL (0-23.9); URINE UROBILINOGEN 0.2 mg/dL (0.2-1.0); URINE WBC 5 /uL (0-25.8)
== END 2021-08-28 12:20 | disposition home or self-care (01) ==
LOC: JER 07:11
PROC: 3E0333Z Introduction of Anti-inflammatory into Peripheral Vein, Percutaneous Approach (ICD-10-PCS; principal; 2021-08-28)
PROC: 3E0333Z Introduction of Anti-inflammatory into Peripheral Vein, Percutaneous Approach (ICD-10-PCS; 2021-08-28)
PROC: 3E033GC Introduction of Other Therapeutic Substance into Peripheral Vein, Percutaneous Approach (ICD-10-PCS; 2021-08-28)
PROC: 3E033GC Introduction of Other Therapeutic Substance into Peripheral Vein, Percutaneous Approach (ICD-10-PCS; 2021-08-28)
DX: R07.9 Chest pain, unspecified (principal); R51.9 Headache, unspecified
CPT/HCPCS: 36415; 70450-TC; 71045-TC-FY; 80053; 81003; 82550; 82553; 83690; 83735; 84443; 84484; 85025; 85730; 93005; 93010; 96374; 96375; 99285-25

== ENCOUNTER 2022-01-29 04:29 | Day surgery (SDC) | payer OTHER ==
[2022-01-24 14:29] VITALS: BMI 34.0
[~2022-01-29 04:29] MED LIST: BUPIVACAINE HCL/PF 0.5% (5MG/ML) 10 ML VIAL IJ ONE; LIDOCAINE HCL 1%, 10 MG/ML (20ML VIAL) NR ONE
[2022-01-29 08:23] LABS: PH,URINE 5.5 (5.0-8.0); URINE APPEARANCE CLEAR; URINE BILIRUBIN NEGATIVE (NEGATIVE); URINE COLOR DK YELLOW; URINE GLUCOSE (UA) NEGATIVE (NEGATIVE); URINE KETONE TRACE (NEGATIVE); URINE LEUK ESTERASE NEGATIVE (NEGATIVE); URINE NITRITE NEGATIVE (NEGATIVE); URINE PROTEIN NEGATIVE (NEGATIVE)
[2022-01-29] MEDS ORDERED: LIDOCAINE HCL 1%, 10 MG/ML (20ML VIAL) ONE (09:54)
[2022-01-29] MEDS ORDERED: BUPIVACAINE HCL/PF 0.5% (5MG/ML) 10 ML VIAL ONE (09:54)
[2022-01-29] MEDS ORDERED: ALBUTEROL SO4 HFA INHALER IH ONE (10:31)
[2022-01-29] MEDS ORDERED: MIDAZOLAM HCL 2 MG/2 ML SINGLE DOSE VIAL ONE ×3 (10:31→10:39)
[2022-01-29] MEDS ORDERED: SUCCINYLCHOLINE CHLORIDE 200 MG/10 ML SYRINGE ONE (10:39)
[2022-01-29] MEDS ORDERED: PROPOFOL 20 ML ONE (10:39)
[2022-01-29] MEDS ORDERED: ceFAZolin SODIUM 1 GM VIAL IVPB ONE (10:45)
[2022-01-29] MEDS ORDERED: BUPIVACAINE HCL/PF 0.5% (5MG/ML) 10 ML VIAL IJ ONE ×2 (10:55)
[2022-01-29] MEDS ORDERED: LIDOCAINE HCL 1%, 10 MG/ML (20ML VIAL) NR ONE ×2 (10:55)
[2022-01-29 12:14] VITALS: RESP 20
[2022-01-29 14:06] VITALS: BP 114/79; PULSE 68; TEMP 98
== END 2022-01-29 13:30 | disposition home or self-care (01) ==
LOC: JASU-SURG 04:29
PROVIDERS: ATTEND Orthopaedic Surgery
PROC: 01N50ZZ Release Median Nerve, Open Approach (ICD-10-PCS; principal; 2022-01-29 10:00)
DX: G56.02 Carpal tunnel syndrome, left upper limb (principal); M65.832 Other synovitis and tenosynovitis, left forearm
CPT/HCPCS: 36415; 81003; 88304-TC

== ENCOUNTER 2022-07-24 03:13 | Emergency (ER) | payer OTHER ==
[2022-07-24 03:20] VITALS: TEMP 97.9; BMI 31.8
[2022-07-24] MEDS ORDERED: ACETAMINOPHEN 1000 MG/100 ML BAG IVPB ONE (04:26)
[2022-07-24] MEDS ORDERED: LIDOCAINE 5% TOPICAL PATCH TP ONE (04:26)
[2022-07-24] MEDS ORDERED: morphine CARPU-JECT 4 MG/1 ML DISP.SYRIN IVPUSH ONE (04:28)
[2022-07-24] MEDS ORDERED: SODIUM CHLORIDE 0.9% 500 ML INFUS.BAG IV ONE (04:29)
[2022-07-24] MEDS ORDERED: LIDOCAINE 5% TOPICAL PATCH ONE (04:50)
[2022-07-24] MEDS ORDERED: morphine SULFATE 4 MG/ML VIAL ONE (04:50)
[2022-07-24 05:00] LABS: PH,URINE 5.5 (5.0-8.0); URINE APPEARANCE CLOUDY; URINE BILIRUBIN NEGATIVE (NEGATIVE); URINE COLOR YELLOW; URINE GLUCOSE (UA) NEGATIVE (NEGATIVE); URINE KETONE TRACE (NEGATIVE); URINE LEUK ESTERASE NEGATIVE (NEGATIVE); URINE NITRITE NEGATIVE (NEGATIVE); URINE PROTEIN NEGATIVE (NEGATIVE); URINE UROBILINOGEN 0.2 mg/dL (0.2-1.0)
[2022-07-24 05:21] LABS: CALCIUM 8.7 mg/dL (8.5-10.1)
[2022-07-24 05:22] LABS: ALBUMIN 3.9 g/dl (3.4-5.0); BLOOD UREA NITROGEN 11.6 mg/dL (7-18)
[2022-07-24 05:25] LABS: CREATININE 0.9 mg/dL (0.55-1.3)
[2022-07-24 05:26] LABS: BILIRUBIN,TOTAL 0.4 mg/dL (0.2-1); TOT PROT 7.2 g/dl (6.4-8.2)
[2022-07-24 05:33] LABS: BASO % 0.9 % (0-2.0); EOS % 3.1 % (0-4.5); HEMATOCRIT 41.1 % (35.4-49); HEMOGLOBIN 13.7 GM/dL (11.7-16.9); LYMPH % 31.7 % (8-40); MCH 29.8 pg (25.7-33.7); MCHC 33.2 g/dl (32.0-35.9); MEAN CELL VOLUME 89.9 fl (80-96); MONO % 9.9 % (3.8-10.2); NEUT % 54.4 % (42.8-82.8); PLATELET COUNT 159 10^3/uL (134-434); RBC 4.58 M/mm3 (4.00-5.60); RDW 12.9 % (11.9-15.9); WHITE BLOOD COUNT 5.5 K/mm3 (4.0-10.0)
[2022-07-24] MEDS ORDERED: KETOROLAC TROMETHAMINE 15 MG/ML VIAL IVPUSH ONE (06:47)
[2022-07-24] MEDS ORDERED: KETOROLAC TROMETHAMINE 15 MG/ML VIAL ONE (06:50)
[2022-07-24 07:59] VITALS: BP 114/79; PULSE 60; RESP 18
[2022-07-24] MEDS ORDERED: LIDOCAINE PATCH REMOVAL MC SCH (22:00)
== END 2022-07-24 08:10 | disposition home or self-care (01) ==
LOC: JER 03:13
PROC: 3E0333Z Introduction of Anti-inflammatory into Peripheral Vein, Percutaneous Approach (ICD-10-PCS; principal; 2022-07-24)
PROC: 3E033NZ Introduction of Analgesics, Hypnotics, Sedatives into Peripheral Vein, Percutaneous Approach (ICD-10-PCS; 2022-07-24)
DX: M54.50 Low back pain, unspecified (principal); M89.29 Other disorders of bone development and growth, multiple sites
CPT/HCPCS: 36415; 74176-TC; 80053; 81003; 85025; 87086; 93005; 93010; 99285-25

== ENCOUNTER 2022-09-02 08:15 | Emergency (ER) | payer OTHER ==
[2022-09-02 08:48] VITALS: BP 141/76; PULSE 78; RESP 18; TEMP 97; BMI 30.9
[2022-09-02] MEDS ORDERED: ACETAMINOPHEN 1000 MG/100 ML BAG IVPB ONE (09:54)
[2022-09-02] MEDS ORDERED: ACETAMINOPHEN INJECTION 100 ML IVPB ONE (10:13)
[2022-09-02 10:23] LABS: BASO % 0.5 % (0-2.0); EOS % 1.7 % (0-4.5); HEMATOCRIT 37.2 % (35.4-49); HEMOGLOBIN 12.5 GM/dL (11.7-16.9); LYMPH % 20.1 % (8-40); MCH 29.4 pg (25.7-33.7); MCHC 33.6 g/dl (32.0-35.9); MEAN CELL VOLUME 87.7 fl (80-96); MEAN PLT VOLUME 8.8 fl (7.5-11.1); MONO % 11.9 % (3.8-10.2); NEUT % 65.8 % (42.8-82.8); PLATELET COUNT 158 10^3/uL (134-434); RBC 4.24 M/mm3 (4.00-5.60); RDW 13.7 % (11.9-15.9); WHITE BLOOD COUNT 7.9 K/mm3 (4.0-10.0)
[2022-09-02 10:50] LABS: ALBUMIN 3.6 g/dl (3.4-5.0); BLOOD UREA NITROGEN 15.2 mg/dL (7-18); CALCIUM 8.6 mg/dL (8.5-10.1)
[2022-09-02 10:53] LABS: CREATININE 0.8 mg/dL (0.55-1.3)
[2022-09-02 10:55] LABS: BILIRUBIN,TOTAL 0.4 mg/dL (0.2-1); TOT PROT 6.6 g/dl (6.4-8.2)
[2022-09-02 10:57] LABS: URINE APPEARANCE CLEAR; URINE BILIRUBIN NEGATIVE (NEGATIVE); URINE COLOR YELLOW; URINE GLUCOSE (UA) NEGATIVE (NEGATIVE); URINE KETONE TRACE (NEGATIVE); URINE LEUK ESTERASE NEGATIVE (NEGATIVE); URINE NITRITE NEGATIVE (NEGATIVE); URINE PROTEIN NEGATIVE (NEGATIVE)
[2022-09-02] MEDS ORDERED: morphine CARPU-JECT 4 MG/1 ML DISP.SYRIN IVPUSH ONE ×2 (11:13→15:23)
[2022-09-02] MEDS ORDERED: morphine SULFATE 4 MG/ML VIAL ONE ×2 (11:40→15:24)
[2022-09-02] MEDS ORDERED: FUROSEMIDE 40 MG/4 ML INJECTABLE VIAL ONE (16:03)
== END 2022-09-02 16:19 | disposition home or self-care (01) ==
LOC: JER 08:15
PROC: 0H98XZZ Drainage of Buttock Skin, External Approach (ICD-10-PCS; principal; 2022-09-02)
PROC: 3E033NZ Introduction of Analgesics, Hypnotics, Sedatives into Peripheral Vein, Percutaneous Approach (ICD-10-PCS; 2022-09-02)
DX: K61.0 Anal abscess (principal)
CPT/HCPCS: 36415; 74177-TC; 80053; 81003; 85025; 87070; 87076; 87186; 87205; 99285-25; Q9967

== ENCOUNTER 2022-09-18 05:34 | Day surgery (SDC) | payer OTHER ==
[2022-09-17 08:09] VITALS: BMI 32.1
[2022-09-18 13:49] VITALS: BP 131/81; PULSE 59; RESP 16
[2022-09-18 15:05] VITALS: TEMP 98
== END 2022-09-18 12:45 | disposition home or self-care (01) ==
LOC: JASU-ENDO 05:34
PROVIDERS: ATTEND Student in an Organized Health Care Education/Training Program
PROC: 0DB78ZX Excision of Stomach, Pylorus, Via Natural or Artificial Opening Endoscopic, Diagnostic (ICD-10-PCS; 2022-09-18)
PROC: 0DB68ZX Excision of Stomach, Via Natural or Artificial Opening Endoscopic, Diagnostic (ICD-10-PCS; principal; 2022-09-18 12:00)
DX: K29.50 Unspecified chronic gastritis without bleeding (principal)
CPT/HCPCS: 88305-TC; 88342-TC

== ENCOUNTER 2022-11-06 04:33 | Day surgery (SDC) | payer OTHER ==
[2022-11-05 10:57] VITALS: BMI 33.3
[2022-11-06 12:13] VITALS: BP 105/72; PULSE 59; RESP 18; TEMP 97
== END 2022-11-06 12:14 | disposition home or self-care (01) ==
LOC: JASU-ENDO 04:33
PROVIDERS: ATTEND Student in an Organized Health Care Education/Training Program
PROC: 0DBP8ZX Excision of Rectum, Via Natural or Artificial Opening Endoscopic, Diagnostic (ICD-10-PCS; 2022-11-06)
PROC: 0DBB8ZX Excision of Ileum, Via Natural or Artificial Opening Endoscopic, Diagnostic (ICD-10-PCS; 2022-11-06)
PROC: 0DBM8ZX Excision of Descending Colon, Via Natural or Artificial Opening Endoscopic, Diagnostic (ICD-10-PCS; 2022-11-06)
PROC: 0DBK8ZX Excision of Ascending Colon, Via Natural or Artificial Opening Endoscopic, Diagnostic (ICD-10-PCS; principal; 2022-11-06 11:00)
DX: K62.1 Rectal polyp (principal); K64.8 Other hemorrhoids
CPT/HCPCS: 88305-TC

== ENCOUNTER 2022-11-19 04:07 | Day surgery (SDC) | payer OTHER ==
[2022-11-14 15:00] VITALS: BMI 33.3
[~2022-11-19 04:07] MED LIST changes: +BUPIVACAINE HCL/PF 0.25% (2.5MG/ML) 10 ML VIAL IJ ONE; +DEXAMETHASONE SOD PHOSPHATE 10 MG/1 ML VIAL IM ONE; +IOHEXOL 180 MG/1 ML ML IJ ONE; +LIDOCAINE HCL 1% PRESERVATIVE FREE - 30ML VIAL IJ ONE; -LIDOCAINE HCL 1%, 10 MG/ML (20ML VIAL) NR ONE
[2022-11-19] MEDS ORDERED: BUPIVACAINE HCL/PF 0.25% (2.5MG/ML) 10 ML VIAL ONE (07:31)
[2022-11-19] MEDS ORDERED: DEXAMETHASONE SOD PHOSPHATE 10 MG/1 ML VIAL ONE (07:31)
[2022-11-19] MEDS ORDERED: LIDOCAINE HCL/PF 1% SDV 5ML VIAL ONE (07:31)
[2022-11-19 08:01] VITALS: RESP 18
[2022-11-19] MEDS ORDERED: BUPIVACAINE HCL/PF 0.5% (5MG/ML) 10 ML VIAL ONE (09:51)
[2022-11-19] MEDS ORDERED: MIDAZOLAM HCL 2 MG/2 ML SINGLE DOSE VIAL ONE (09:56)
[2022-11-19] MEDS ORDERED: IOHEXOL 180 MG/1 ML ML IJ ONE (10:03)
[2022-11-19] MEDS ORDERED: LIDOCAINE HCL 1% PRESERVATIVE FREE - 30ML VIAL IJ ONE (10:03)
[2022-11-19] MEDS ORDERED: BUPIVACAINE HCL/PF 0.5% (5MG/ML) 10 ML VIAL IJ ONE (10:03)
[2022-11-19] MEDS ORDERED: PROPOFOL 20 ML ONE (10:06)
[2022-11-19 11:32] VITALS: BP 119/71; PULSE 65; TEMP 97.9
== END 2022-11-19 11:15 | disposition home or self-care (01) ==
LOC: JASU-SURG 04:07
PROVIDERS: ATTEND Physical Medicine & Rehabilitation
PROC: BR16ZZZ Fluoroscopy of Lumbar Facet Joint(s) (ICD-10-PCS; 2022-11-19)
PROC: 3E0T3BZ Introduction of Anesthetic Agent into Peripheral Nerves and Plexi, Percutaneous Approach (ICD-10-PCS; principal; 2022-11-19 10:30)
DX: M46.96 Unspecified inflammatory spondylopathy, lumbar region (principal)
CPT/HCPCS: 76000-TC-FY; J1100

== ENCOUNTER 2023-02-11 06:00 | Day surgery (SDC) | payer OTHER ==
[2023-02-08 11:02] VITALS: BMI 33.3
[2023-02-11] MEDS ORDERED: MIDAZOLAM HCL 2 MG/2 ML SINGLE DOSE VIAL ONE ×2 (12:41→12:56)
[2023-02-11] MEDS ORDERED: PROPOFOL 20 ML ONE (12:44)
[2023-02-11] MEDS ORDERED: BUPIVACAINE HCL/PF 0.5% (5MG/ML) 10 ML VIAL IJ ONE ×2 (13:00→13:04)
[2023-02-11] MEDS ORDERED: IOHEXOL 180 MG/1 ML ML IJ ONE ×2 (13:00→13:02)
[2023-02-11] MEDS ORDERED: LIDOCAINE HCL 1% PRESERVATIVE FREE - 30ML VIAL IJ ONE ×2 (13:00)
[2023-02-11] MEDS ORDERED: DEXAMETHASONE SOD PHOSPHATE 10 MG/1 ML VIAL IVPUSH ONE ×2 (13:02→13:04)
[2023-02-11 15:26] VITALS: RESP 18; TEMP 98
[2023-02-11 15:30] VITALS: BP 120/70; PULSE 69
== END 2023-02-11 14:13 | disposition home or self-care (01) ==
LOC: JASU-SURG 06:00
PROVIDERS: ATTEND Physical Medicine & Rehabilitation
PROC: 3E0T3BZ Introduction of Anesthetic Agent into Peripheral Nerves and Plexi, Percutaneous Approach (ICD-10-PCS; principal; 2023-02-11 11:00)
PROC: 3E0T33Z Introduction of Anti-inflammatory into Peripheral Nerves and Plexi, Percutaneous Approach (ICD-10-PCS; 2023-02-11 11:00)
DX: M47.816 Spondylosis without myelopathy or radiculopathy, lumbar region (principal)
CPT/HCPCS: 76000-TC-FY; J1100

== ENCOUNTER 2023-02-21 06:05 | Day surgery (SDC) | payer OTHER ==
[2023-02-12 11:23] VITALS: BMI 34.0
[2023-02-21] MEDS ORDERED: MIDAZOLAM HCL 2 MG/2 ML SINGLE DOSE VIAL ONE ×3 (07:49→08:53)
[2023-02-21] MEDS ORDERED: DEXAMETHASONE SOD PHOSPHATE 4 MG/1 ML VIAL ONE (07:50)
[2023-02-21] MEDS ORDERED: ceFAZolin SODIUM 1 GM VIAL ONE (07:50)
[2023-02-21] MEDS ORDERED: ALBUTEROL SO4 HFA INHALER IH ONE (07:50)
[2023-02-21] MEDS ORDERED: ONDANSETRON 4 MG/2 ML VIAL ONE (07:50)
[2023-02-21] MEDS ORDERED: ROPIVACAINE HCL 0.5% 30ML VIAL ONE (07:53)
[2023-02-21] MEDS ORDERED: DEXAMETHASONE SOD PHOSPHATE/PF 10 MG/ML SDV ONE (07:53)
[2023-02-21] MEDS ORDERED: PROPOFOL 20 ML ONE ×2 (08:32→08:57)
[2023-02-21] MEDS ORDERED: ACETAMINOPHEN 1000 MG/100 ML BAG IVPB ONE (09:35)
[2023-02-21] MEDS ORDERED: oxyCODONE HCL 5 MG TABLET PO PRN (09:35)
[2023-02-21] MEDS ORDERED: ONDANSETRON 4 MG/2 ML VIAL IVPUSH PRN (09:35)
[2023-02-21] MEDS ORDERED: LACTATED RINGERS SOLUTION 1,000 ML IV SCH (09:45)
[2023-02-21] MEDS ORDERED: FENTANYL CITRATE/PF 50 MCG/ML VIAL ONE (09:54)
[2023-02-21] MEDS ORDERED: oxyCODONE HCL 5 MG TABLET ONE (10:20)
[2023-02-21 10:31] VITALS: TEMP 97
[2023-02-21 11:08] VITALS: BP 110/76; PULSE 66; RESP 20
== END 2023-02-21 11:09 | disposition home or self-care (01) ==
LOC: FASU 06:05
PROVIDERS: ATTEND Orthopaedic Surgery
PROC: 0PBB4ZZ Excision of Left Clavicle, Percutaneous Endoscopic Approach (ICD-10-PCS; principal; 2023-02-21 08:45)
PROC: 0RNK4ZZ Release Left Shoulder Joint, Percutaneous Endoscopic Approach (ICD-10-PCS; 2023-02-21 08:45)
PROC: 0RSKXZZ Reposition Left Shoulder Joint, External Approach (ICD-10-PCS; 2023-02-21 08:45)
DX: M25.612 Stiffness of left shoulder, not elsewhere classified (principal); M75.42 Impingement syndrome of left shoulder; M25.512 Pain in left shoulder; M19.012 Primary osteoarthritis, left shoulder
CPT/HCPCS: 94760

== ENCOUNTER 2023-07-22 10:12 | Emergency (ER) | payer OTHER ==
[2023-07-22 10:26] VITALS: BP 124/89; PULSE 77; RESP 18; TEMP 99; BMI 33.3
[2023-07-22] MEDS ORDERED: ACETAMINOPHEN 500 MG TABLET (FP) PO ONE (10:59)
[2023-07-22] MEDS ORDERED: ACETAMINOPHEN 500 MG TABLET (FP) ONE (11:15)
== END 2023-07-22 12:40 | disposition home or self-care (01) ==
LOC: JER 10:12
DX: R09.81 Nasal congestion (principal); R05.9 Cough, unspecified; R06.7 Sneezing; M79.10 Myalgia, unspecified site; R51.9 Headache, unspecified; R50.9 Fever, unspecified; R07.89 Other chest pain; U07.1 COVID-19
CPT/HCPCS: 0241U-QW; 93005; 93010; 99284-25

== ENCOUNTER 2023-09-16 09:40 | Emergency (ER) | payer OTHER ==
[2023-09-16 09:51] VITALS: BMI 33.3
[2023-09-16] MEDS: PANTOPRAZOLE SODIUM 40 MG VIAL IVPUSH ONE (10:23)
[2023-09-16] MEDS ORDERED: ACETAMINOPHEN INJECTION 100 ML IVPB ONE (10:47)
[2023-09-16] MEDS: ACETAMINOPHEN 1000 MG/100 ML BAG IVPB ONE (10:48)
[2023-09-16 11:05] LABS: BASO % 0.8 % (0-2.0); EOS % 2.4 % (0-4.5); HEMATOCRIT 41.7 % (35.4-49); HEMOGLOBIN 13.7 GM/dL (11.7-16.9); LYMPH % 22.7 % (8-40); MCH 28.7 pg (25.7-33.7); MCHC 32.9 g/dl (32.0-35.9); MEAN CELL VOLUME 87.2 fl (80-96); MEAN PLT VOLUME 9.2 fl (7.5-11.1); NEUT % 66.1 % (42.8-82.8); PLATELET COUNT 180 10^3/uL (134-434); RBC 4.78 M/mm3 (4.00-5.60); RDW 15.4 % (11.9-15.9); WHITE BLOOD COUNT 5.5 K/mm3 (4.0-10.0)
[2023-09-16 11:09] LABS: INR 1.1 (0.83-1.09); PROTHROMBIN TIME (PATIENT) 12.7 SEC (9.7-13.0)
[2023-09-16 11:12] LABS: ACTIVATED PTT 29.6 SECONDS (25.2-36.5)
[2023-09-16 11:35] LABS: POTASSIUM 3.9 mmol/L (3.5-5.1)
[2023-09-16 11:38] LABS: CALCIUM 9.3 mg/dL (8.5-10.1)
[2023-09-16 11:39] LABS: BLOOD UREA NITROGEN 12.5 mg/dL (7-18); MAGNESIUM 2.2 mg/dL (1.8-2.4)
[2023-09-16 11:42] LABS: PHOSPHOROUS 2.1 mg/dL (2.5-4.9)
[2023-09-16 11:43] LABS: PH,URINE 5.5 (5.0-8.0); URINE APPEARANCE CLEAR; URINE BILIRUBIN NEGATIVE (NEGATIVE); URINE COLOR YELLOW; URINE GLUCOSE (UA) NEGATIVE (NEGATIVE); URINE KETONE NEGATIVE (NEGATIVE); URINE LEUK ESTERASE NEGATIVE (NEGATIVE); URINE NITRITE NEGATIVE (NEGATIVE); URINE PROTEIN NEGATIVE (NEGATIVE)
[2023-09-16 11:43] LABS: BILIRUBIN,TOTAL 0.7 mg/dL (0.2-1); TOT PROT 7.4 g/dl (6.4-8.2)
[2023-09-16] MEDS: morphine CARPU-JECT 4 MG/1 ML DISP.SYRIN IVPUSH ONE (13:04)
[2023-09-16] MEDS ORDERED: morphine SULFATE 4 MG/ML VIAL ONE (13:06)
[2023-09-16 14:52] VITALS: BP 132/96; PULSE 74; RESP 16; TEMP 98
== END 2023-09-16 15:23 | disposition home or self-care (01) ==
LOC: JER 09:40
PROC: 3E033NZ Introduction of Analgesics, Hypnotics, Sedatives into Peripheral Vein, Percutaneous Approach (ICD-10-PCS; principal; 2023-09-16)
PROC: 3E033GC Introduction of Other Therapeutic Substance into Peripheral Vein, Percutaneous Approach (ICD-10-PCS; 2023-09-16)
DX: K92.1 Melena (principal); R10.30 Lower abdominal pain, unspecified; M54.50 Low back pain, unspecified
CPT/HCPCS: 36415; 71045-TC-FY; 74177-TC; 80053; 81003; 82272; 83605; 83690; 83735; 84100; 84484; 85025; 85610; 85730; 86850; 86900; 86901; 87086; 93005; 93010; 96374; 96375; 99285-25; J0131; Q9967

== ENCOUNTER 2024-04-04 08:32 | Emergency (ER) | payer OTHER ==
[2024-04-04 08:41] VITALS: BP 161/74; PULSE 79; RESP 18; TEMP 99; BMI 33.3
[2024-04-04] MEDS ORDERED: KETOROLAC TROMETHAMINE 30 MG/1 ML VIAL ONE (09:04)
[2024-04-04] MEDS ORDERED: ACETAMINOPHEN 500 MG TABLET (FP) ONE (09:04)
[2024-04-04] MEDS: KETOROLAC TROMETHAMINE 30 MG/1 ML VIAL IM ONE (09:14)
[2024-04-04] MEDS: ACETAMINOPHEN 500 MG TABLET (FP) PO ONE (09:14)
[2024-04-04 09:37] LABS: THROAT:GRP A STREP NOT DETECTED (NOTDETECTED)
== END 2024-04-04 11:30 | disposition home or self-care (01) ==
LOC: JER 08:32
PROC: 3E0133Z Introduction of Anti-inflammatory into Subcutaneous Tissue, Percutaneous Approach (ICD-10-PCS; principal; 2024-04-04)
DX: R05.9 Cough, unspecified (principal); R09.81 Nasal congestion; J02.9 Acute pharyngitis, unspecified; M79.10 Myalgia, unspecified site; Z20.822 Contact with and (suspected) exposure to COVID-19
CPT/HCPCS: 0241U-QW; 71046-TC-FY; 87651; 93005; 93010; 96372; 99285-25